=== PATIENT | male | born 1995 | race Caucasian/White ===

== ENCOUNTER 2021-01-27 20:53 | Emergency (ER) | payer OTHER ==
[2021-01-27] MEDS ORDERED: BACLOFEN 10MG T10 MG PO (22:57)
[2021-01-27] MEDS ORDERED: NAPROXEN500 MG PO (22:57)
== END 2021-01-27 23:25 | disposition home or self-care (01) ==
LOC: FER 20:53
DX: M25.512 Pain in left shoulder (principal); M25.511 Pain in right shoulder; M54.2 Cervicalgia; R51.9 Headache, unspecified; F17.210 Nicotine dependence, cigarettes, uncomplicated; Z87.19 Personal history of other diseases of the digestive system; Z98.890 Other specified postprocedural states; V43.02XA Car driver injured in collision with other type car in nontraffic accident, initial encounter; Y92.410 Unspecified street and highway as the place of occurrence of the external cause
CPT/HCPCS: 70450; 72125; 73030; 96372; J1100; J1885